=== PATIENT | female | born 1945 | race Caucasian/White ===

== ENCOUNTER 2017-09-23 08:28 | Day surgery (SDC) | payer MEDICARE, BC ==
[2017-09-21 12:14] LABS: BASOPHILS # (AUTO) 0.1 X10'3 (0-0.2); BASOPHILS % (AUTO) 0.7 % (0-1); EOSINOPHILS # (AUTO) 0.3 X10'3 (0-0.9); EOSINOPHILS % (AUTO) 4.2 % (0-6); HEMOGLOBIN 14.1 g/dl (12.0-16.0); LYMPHOCYTES # (AUTO) 1.7 X10'3 (1.1-4.8); LYMPHOCYTES % (AUTO) 23.1 % (21-51); MEAN CORPUSCULAR HEMOGLOBIN 30.9 PG (27.0-31.0); MEAN CORPUSCULAR HGB CONC 33.7 % (33.0-36.5); MEAN CORPUSCULAR VOLUME 91.6 FL (78-98); MEAN PLATELET VOLUME 9.8 FL (7.4-10.4); MONOCYTES # (AUTO) 0.5 X10'3 (0-0.9); MONOCYTES % (AUTO) 6.7 % (2-12); NEUTROPHILS # (AUTO) 4.9 X10'3 (1.8-7.7); NEUTROPHILS % (AUTO) 65.3 % (42-75); PLATELET COUNT 255 X10'3 (140-440); RED BLOOD COUNT 4.58 X10'6 (4.20-5.60); RED CELL DISTRIBUTION WIDTH 13.7 % (11.5-14.5); WHITE BLOOD COUNT 7.5 X10'3 (4.5-11.0)
[2017-09-21 12:24] LABS: PARTIAL THROMBOPLASTIN TIME 26 SECONDS (22-32); PROTHROMBIN TIME 10.1 SECONDS (9.0-12.0)
[2017-09-21 12:35] LABS: ALANINE AMINOTRANSFERASE 28 U/L (12-78); ALBUMIN 3.9 G/DL (3.4-5.0); ALBUMIN/GLOBULIN RATIO 0.9 (1.1-1.5); ALKALINE PHOSPHATASE 74 IU/L (46-116); ANION GAP 9 (8-16); ASPARTATE AMINO TRANSFERASE 21 U/L (10-37); BILIRUBIN,TOTAL 0.5 MG/DL (0.1-1.0); BLOOD UREA NITROGEN 31 MG/DL (7-18); BUN/CREATININE RATIO 22.1 (6.6-38.0); CALCIUM 9.9 MG/DL (8.5-10.1); CHLORIDE 104 MMOL/L (99-107); GLUCOSE 90 MG/DL (70-104); POTASSIUM 4.1 MMOL/L (3.5-5.1); SODIUM 140 MMOL/L (135-145); TOTAL CARBON DIOXIDE 27.5 MMOL/L (24-32); TOTAL PROTEIN 8.1 G/DL (6.4-8.2); eGFR 37 ML/MIN
[~2017-09-23] VITALS: Ht 149.9 cm; Wt 79.0 kg
[2017-09-23] VITALS (13 sets, daily range): BP systolic 125–173; BP diastolic 60–86
[~2017-09-23 08:28] MED LIST: ASPI-612 PO; LISI-234 PO; LISI-600 PO; VERA240T PO
[2017-09-23] MEDS ORDERED: nitroGLYCERIN 0.4mg SUBLingual tab SL PRN (08:55)
[2017-09-23] MEDS ORDERED: diphenhydrAMINE 25mg capsule PO PRN (08:55)
[2017-09-23] MEDS ORDERED: normal saline 1000ml 1,000 ML IV SCH ×2 (08:55→11:35)
[2017-09-23] MEDS ORDERED: LORazepam 0.5 MG tablet PO PRN (08:55)
[2017-09-23] MEDS ORDERED: NITR0.4T51 SL (09:22)
[2017-09-23] MEDS ORDERED: DOXA2TAB2 PO (09:22)
[2017-09-23] MEDS ORDERED: CYAN-19 PO (09:22)
[2017-09-23] MEDS ORDERED: TRIA1CAP6 PO (09:22)
[2017-09-23] MEDS ORDERED: fentaNYL/PF 50MCG/1 ML 2ML syringe ONE (10:02)
[2017-09-23] MEDS ORDERED: midazolam 2 mg/2 ml injection ONE (10:02)
[2017-09-23] MEDS ORDERED: iohexol 350MG/ML 100ml bottle IV ONE (10:02)
[2017-09-23] MEDS ORDERED: iohexol 350 MG/ML 50ML vial IV ONE ×2 (10:02→10:39)
[2017-09-23] MEDS ORDERED: LIDOcaine 1%/PF (10mg/ml) 5ml vial ONE (10:02)
[2017-09-23] MEDS ORDERED: ondansetron/PF 4mg/2ml inj IV PRN (11:35)
[2017-09-23] MEDS ORDERED: OXAZEpam 15mg capsule PO PRN (11:35)
[2017-09-23] MEDS ORDERED: HYDROcodone/acetaminophen 5mg/325mg tablet PO PRN (11:35)
[2017-09-23] MEDS ORDERED: proCHLORperazine 10 MG/2 ml inj IV PRN (11:35)
[2017-09-23] MEDS ORDERED: HYDROcodone/acetaminophen 10/325mg tab PO PRN (11:35)
== END 2017-09-23 18:35 | disposition home or self-care (01) ==
LOC: SSTAY O 08:28
PROVIDERS: ATTEND Internal Medicine Cardiovascular Disease
DX: I25.10 Atherosclerotic heart disease of native coronary artery without angina pectoris (principal); I11.0 Hypertensive heart disease with heart failure; I50.9 Heart failure, unspecified; E78.5 Hyperlipidemia, unspecified; M19.90 Unspecified osteoarthritis, unspecified site; I25.2 Old myocardial infarction; M51.36 Other intervertebral disc degeneration, lumbar region; D25.9 Leiomyoma of uterus, unspecified; J44.9 Chronic obstructive pulmonary disease, unspecified; Z79.82 Long term (current) use of aspirin; Z98.890 Other specified postprocedural states; Z72.89 Other problems related to lifestyle; Z79.899 Other long term (current) drug therapy
CPT/HCPCS: 36415; 71046; 75630; 80053; 85025; 85610; 85730; 93458; 99152; 99153; A6257; C1760; C1769; J1644; J2001; J2250; J3010; J7030; Q0163; Q9967

== ENCOUNTER 2017-10-22 05:22 | Inpatient (IN) | payer MEDICARE, BC ==
[2017-10-20 14:08] LABS: BASOPHILS % (AUTO) 0.7 % (0-1); EOSINOPHILS # (AUTO) 0.3 X10'3 (0-0.9); EOSINOPHILS % (AUTO) 4.3 % (0-6); LYMPHOCYTES # (AUTO) 1.3 X10'3 (1.1-4.8); LYMPHOCYTES % (AUTO) 19.4 % (21-51); MEAN CORPUSCULAR HEMOGLOBIN 31.4 PG (27.0-31.0); MEAN CORPUSCULAR HGB CONC 34.3 % (33.0-36.5); MEAN CORPUSCULAR VOLUME 91.4 FL (78-98); MEAN PLATELET VOLUME 9.9 FL (7.4-10.4); MONOCYTES # (AUTO) 0.5 X10'3 (0-0.9); MONOCYTES % (AUTO) 7.4 % (2-12); NEUTROPHILS # (AUTO) 4.5 X10'3 (1.8-7.7); NEUTROPHILS % (AUTO) 68.2 % (42-75); PRE OP HEMATOCRIT 40.2 % (35.0-45.0); PRE OP HEMOGLOBIN 13.8 g/dL (12.0-16.0); PRE OP PLATELET COUNT 195 X10'3 (140-440); RED BLOOD COUNT 4.39 X10'6 (4.20-5.60); RED CELL DISTRIBUTION WIDTH 13.8 % (11.5-14.5)
[2017-10-20 14:18] LABS: HEMOGLOBIN A1C 5.8 % (4.5-6.2)
[2017-10-20 14:21] LABS: ALBUMIN 3.7 G/DL (3.4-5.0); ALBUMIN/GLOBULIN RATIO 0.9 (1.1-1.5); ALKALINE PHOSPHATASE 77 IU/L (46-116); BLOOD UREA NITROGEN 27 MG/DL (7-18); BUN/CREATININE RATIO 21.1 (6.6-38.0); CHLORIDE 105 MMOL/L (99-107); CREATININE 1.28 MG/DL (0.40-0.90); PRE OP ALT 19 U/L (30-65); PRE OP ANION GAP 10 (8-16); PRE OP AST 18 U/L (10-37); PRE OP BILIRUB, TOTAL 0.5 MG/DL (0.0-1.0); PRE OP GLUCOSE 107 MG/DL (70-104); PRE OP POTASSIUM 4.2 MMOL/L (3.4-5.1); PRE OP SODIUM 142 MMOL/L (135-145); TOTAL CARBON DIOXIDE 27.1 MMOL/L (24-32); eGFR 41 ML/MIN
[2017-10-20 14:22] LABS: CLARITY,URINE Clear (Clear); COLOR,URINE Yellow (Yellow); GLUCOSE, URINE Negative (Neg); KETONES,URINE Negative (Neg); LEUKOCYTE ESTERASE ,URINE Moderate (Neg); NITRITES, URINE Negative (Neg); OCCULT BLOOD,URINE Negative (Neg); PROTEIN,URINE Negative (Neg); UROBILINOGEN,URINE 0.2 E.U/dL (0.2-1.0)
[2017-10-20 14:25] LABS: UA COLLECTION TYPE CLN CATCH MIDSTREAM
[2017-10-20 15:04] LABS: BACTERIA,URINE 1+ /HPF (Neg); RBC,URINE 0-2 /HPF (0-2); SQUAMOUS EPITHELIAL CELL,UR MANY /LPF (FEW); WBC,URINE 30-50 /HPF (0-4)
[2017-10-20 21:45] LABS: ABG BASE EXCESS 0.7 mmol/L (-2.0-3.0); ABG HCO3 24.9 mmol/L (22.0-26.0); ABG OXYGEN SATURATION 96.5 % (95-98); ABG PCO2 (T) 38.7 mmHg (32.0-45.0); ABG PH (T) 7.427 (7.350-7.450); ABG PO2 (T) 79.4 mmHg (83-108); ALLEN'S TEST Positive; FCOHb 1.1 % (0.5-1.5); FMetHb 0.3 % (0.3-1.12); FO2Hb 95.1 % (94-100); TOTAL HEMOGLOBIN 14.1 G/dl (12.0-16.0)
[2017-10-21 11:45] VITALS: BP 132/68
[~2017-10-22] VITALS: Ht 149.9 cm; Wt 85.5 kg
[2017-10-22] VITALS (28 sets, daily range): BP systolic 90–160; BP diastolic 51–88
[~2017-10-22 05:22] MED LIST changes: +CHOL10002 PO; +DOXA2TAB2 PO; -LISI-234 PO; +NITR0.4T51 SL; +TRIA1CAP6 PO; +ringers solution, lacted 1,000 ML IV SCH
[2017-10-22] MEDS ORDERED: LORazepam 2 mg/ml vial IV ONE (05:30)
[2017-10-22] MEDS ORDERED: dextrose 50%-water 50ml dispensing syringe IV PRN ×2 (05:30→11:15)
[2017-10-22] MEDS ORDERED: cefazolin/dext.iso 2gm/50ml 50 ML IV ONE (05:30)
[2017-10-22] MEDS ORDERED: mupirocin 2% ointment 22GM TP SCH (05:30)
[2017-10-22] MEDS ORDERED: metoprolol tartrate 12.5mg (1/2 tablet) PO ONE (05:30)
[2017-10-22] MEDS ORDERED: vancomycin inj 1,500 MG in normal saline 300ml IV soln IV ONE (05:30)
[2017-10-22] MEDS ORDERED: insulin regular, human 100 UNITS in normal saline 100ml IV soln 99 ML IV SCH ×2 (05:30)
[2017-10-22] MEDS ORDERED: famotidine 20mg tablet PO ONE (05:30)
[2017-10-22] MEDS ORDERED: LIDOcaine 1% (10mg/ml) 2ml vial ONE (05:45)
[2017-10-22] MEDS ORDERED: LORazepam 2 mg/ml vial ONE (06:51)
[2017-10-22] MEDS ORDERED: nitroGLYCERIN in D5W 50mg/250ml (Tridil) infusion IV ONE (07:00)
[2017-10-22] MEDS ORDERED: isoflurane 100ml inhalation liquid IH ONE (07:00)
[2017-10-22] MEDS ORDERED: protamine sulf. 10mg/ml inj. IV ONE (07:00)
[2017-10-22] MEDS ORDERED: aminocaproic acid 250 MG/1 ML inj. ONE ×2 (07:00→15:00)
[2017-10-22] MEDS ORDERED: DOPamine/D5W 400mg/250ml bag IV ONE (07:00)
[2017-10-22] MEDS ORDERED: SUFENTANIL CITRATE 50 MCG/ML 2ml ampule IV ONE (07:12)
[2017-10-22] MEDS ORDERED: rocuronium 10mg/ml inj IV ONE (07:13)
[2017-10-22] MEDS ORDERED: LIDOcaine 2% (20mg/ml) 5ml vial ONE (07:13)
[2017-10-22] MEDS ORDERED: propofol inj 20 ML IV ONE (07:13)
[2017-10-22 07:56] LABS: ABG BASE EXCESS VENOUS -3.1 mmol/L; ABG HCO3 VENOUS 22.6 mmol/L; ABG PCO2 VENOUS 43.1 mmHg; CL (ABG) 108 mmol/L (99-107); FCOHb VENOUS 0.3 %; FHHb VENOUS 23.1 %; FMetHb VENOUS 0.4 %; FO2Hb VENOUS 76.2 %; GLUCOSE (ABG) 105 mg/dl (70-105); IONIZED CA (ABG) 1.18 mmol/L (1.03-1.32); K (ABG) 3.5 mmol/L (3.3-5.1); NA (ABG) 137 mmol/L (135-145); TOTAL HEMOGLOBIN 11.3 G/dl (12.0-16.0)
[2017-10-22] MEDS ORDERED: papaverine 30 mg/ml 2ml inj. ONE (08:00)
[2017-10-22] MEDS ORDERED: heparin 10,000 units/1 ML INJ IR ONE (08:30)
[2017-10-22] MEDS ORDERED: papaverine 30 mg/ml 2ml inj. IA ONE (08:30)
[2017-10-22 09:15] LABS: ABG BASE EXCESS -2.1 mmol/L (-2.0-3.0); ABG HCO3 21.9 mmol/L (22.0-26.0); ABG OXYGEN SATURATION 99.6 % (95-98); ABG PCO2 33.9 mmHg (35.0-45.0); ABG PH 7.428 (7.350-7.450); ABG PO2 530.1 mmHg (60.0-100.0); CL (ABG) 106 mmol/L (99-107); FCOHb 0.6 % (0.5-1.5); FMetHb 0.1 % (0.3-1.12); FO2Hb 98.9 % (94-100); GLUCOSE (ABG) 104 mg/dl (70-105); IONIZED CA (ABG) 1.02 mmol/L (1.03-1.32); K (ABG) 4.6 mmol/L (3.3-5.1); NA (ABG) 133 mmol/L (135-145); TOTAL HEMOGLOBIN 8.2 G/dl (12.0-16.0)
[2017-10-22 09:41] LABS: ABG BASE EXCESS VENOUS -0.1 mmol/L; ABG HCO3 VENOUS 24.6 mmol/L; ABG PCO2 VENOUS 40.3 mmHg; ABG PO2 VENOUS 42.1 mmHg; CL (ABG) 103 mmol/L (99-107); FCOHb VENOUS 1.4 %; FHHb VENOUS 18.7 %; FMetHb VENOUS 0.3 %; FO2Hb VENOUS 79.6 %; GLUCOSE (ABG) 203 mg/dl (70-105); IONIZED CA (ABG) 0.98 mmol/L (1.03-1.32); K (ABG) 4.6 mmol/L (3.3-5.1); NA (ABG) 133 mmol/L (135-145); TOTAL HEMOGLOBIN 7.9 G/dl (12.0-16.0)
[2017-10-22 10:21] LABS: ABG BASE EXCESS 2.6 mmol/L (-2.0-3.0); ABG HCO3 27.5 mmol/L (22.0-26.0); ABG OXYGEN SATURATION 99.7 % (95-98); ABG PCO2 44.6 mmHg (35.0-45.0); ABG PH 7.408 (7.350-7.450); CL (ABG) 107 mmol/L (99-107); FCOHb 1.2 % (0.5-1.5); FMetHb 0.3 % (0.3-1.12); FO2Hb 98.2 % (94-100); GLUCOSE (ABG) 74 mg/dl (70-105); IONIZED CA (ABG) 1.19 mmol/L (1.03-1.32); K (ABG) 3.7 mmol/L (3.3-5.1); NA (ABG) 136 mmol/L (135-145); TOTAL HEMOGLOBIN 7.3 G/dl (12.0-16.0)
[2017-10-22 10:55] LABS: ABG BASE EXCESS VENOUS -1.6 mmol/L; ABG PCO2 VENOUS 44.4 mmHg; ABG PO2 VENOUS 33.7 mmHg; CL (ABG) 107 mmol/L (99-107); FCOHb VENOUS 0.5 %; FHHb VENOUS 35.8 %; FMetHb VENOUS 0.5 %; FO2Hb VENOUS 63.2 %; GLUCOSE (ABG) 150 mg/dl (70-105); IONIZED CA (ABG) 1.24 mmol/L (1.03-1.32); K (ABG) 3.4 mmol/L (3.3-5.1); NA (ABG) 136 mmol/L (135-145)
[2017-10-22] MEDS ORDERED: DOPamine 400mg/D5W 250ml 250 ML IV PRN (11:13)
[2017-10-22] MEDS ORDERED: niCARDipine/sod cl 20mg/200ml 200 ML IV PRN (11:13)
[2017-10-22] MEDS ORDERED: normal saline 250ml IV soln 250 ML IV PRN (11:15)
[2017-10-22] MEDS ORDERED: Neutra Phos packet PO PRN (11:15)
[2017-10-22] MEDS ORDERED: sodium phosphate inj. 30 MMOL in dextrose 5%-water 250 ML IV PRN (11:15)
[2017-10-22] MEDS ORDERED: sodium phosphate inj. 15 MMOL in dextrose 5%-water 150 ML IV PRN (11:15)
[2017-10-22] MEDS ORDERED: ipratropium/albuterol 3ml nebule IH PRN (11:15)
[2017-10-22] MEDS ORDERED: acetaminophen 325mg tablet PO PRN (11:15)
[2017-10-22] MEDS ORDERED: potassium Cl 20mEq/100mL bag 100 ML IV PRN (11:15)
[2017-10-22] MEDS ORDERED: magnesium 4gm in 100ml NS 100 ML IV PRN (11:15)
[2017-10-22] MEDS ORDERED: magnesium hydroxide 30ml (MOM) UD suspension PO PRN (11:15)
[2017-10-22] MEDS ORDERED: morphine 4 MG/ML inj SYRINge IV PRN ×2 (11:15)
[2017-10-22] MEDS ORDERED: magnesium 2GM in 50ml NS 50 ML IV PRN (11:15)
[2017-10-22] MEDS ORDERED: metoclopramide 5 mg/ml inj IV PRN (11:15)
[2017-10-22] MEDS ORDERED: HYDROcodone/acetaminophen 10/325mg tab PO PRN (11:15)
[2017-10-22] MEDS: insulin regular, human inj. 100 UNITS in normal saline 100ml IV soln 100 ML IV SCH ×8 (11:34→23:12)
[2017-10-22 12:11] LABS: ABG BASE EXCESS -2.2 mmol/L (-2.0-3.0); ABG OXYGEN SATURATION 98.8 % (95-98); ABG PH (T) 7.374 (7.350-7.450); ABG PO2 (T) 198.9 mmHg (83-108); ALLEN'S TEST Positive; FCOHb 0.3 % (0.5-1.5); FMetHb 0.1 % (0.3-1.12); FO2Hb 98.4 % (94-100); MINUTE VOLUME 6 L/min; PATIENT TEMPERATURE 36.4; PEEP 5 cm H2O; RESPIRATORY RATE 12 b/min; RESPIRATORY RATE (OBSERVED) 12 b/min; TIDAL VOLUME 500 mL; TOTAL HEMOGLOBIN 10.7 G/dl (12.0-16.0)
[2017-10-22 12:16] LABS: BASOPHILS % (AUTO) 0 % (0-1); EOSINOPHILS # (AUTO) 0.2 X10'3 (0-0.9); EOSINOPHILS % (AUTO) 2.4 % (0-6); HEMATOCRIT 29.4 % (35.0-45.0); HEMOGLOBIN 9.9 g/dl (12.0-16.0); LYMPHOCYTES # (AUTO) 0.7 X10'3 (1.1-4.8); LYMPHOCYTES % (AUTO) 6.9 % (21-51); MEAN CORPUSCULAR HEMOGLOBIN 31.1 PG (27.0-31.0); MEAN CORPUSCULAR HGB CONC 33.6 % (33.0-36.5); MEAN CORPUSCULAR VOLUME 92.5 FL (78-98); MEAN PLATELET VOLUME 9.9 FL (7.4-10.4); MONOCYTES # (AUTO) 0.4 X10'3 (0-0.9); MONOCYTES % (AUTO) 4.4 % (2-12); NEUTROPHILS # (AUTO) 8.6 X10'3 (1.8-7.7); NEUTROPHILS % (AUTO) 86.3 % (42-75); PLATELET COUNT 105 X10'3 (140-440); RED BLOOD COUNT 3.18 X10'6 (4.20-5.60); RED CELL DISTRIBUTION WIDTH 13.7 % (11.5-14.5); WHITE BLOOD COUNT 9.9 X10'3 (4.5-11.0)
[2017-10-22 12:23] LABS: INR 1.1 INR; PARTIAL THROMBOPLASTIN TIME 29 SECONDS (22-32); PROTHROMBIN TIME 11.5 SECONDS (9.0-12.0)
[2017-10-22 12:33] LABS: ALANINE AMINOTRANSFERASE 20 U/L (12-78); ALBUMIN 2.8 G/DL (3.4-5.0); ALBUMIN/GLOBULIN RATIO 1.3 (1.1-1.5); ALKALINE PHOSPHATASE 36 IU/L (46-116); ANION GAP 9 (8-16); ASPARTATE AMINO TRANSFERASE 24 U/L (10-37); BILIRUBIN,TOTAL 0.6 MG/DL (0.1-1.0); BLOOD UREA NITROGEN 26 MG/DL (7-18); BUN/CREATININE RATIO 20.8 (6.6-38.0); CALCIUM 8.3 MG/DL (8.5-10.1); CHLORIDE 110 MMOL/L (99-107); CREATININE 1.25 MG/DL (0.40-0.90); GLUCOSE 73 MG/DL (70-104); MAGNESIUM 3.7 MG/DL (1.5-2.4); POTASSIUM 3.5 MMOL/L (3.5-5.1); SODIUM 146 MMOL/L (135-145); TOTAL CARBON DIOXIDE 26.6 MMOL/L (24-32); TOTAL PROTEIN 4.9 G/DL (6.4-8.2); eGFR 42 ML/MIN
[2017-10-22] MEDS: insulin Lispro (HumaLOG) vial - multi-dose SQ SCH ×2 (13:00→17:47)
[2017-10-22] MEDS: sodium chloride 0.45% 1,000 ML IV SCH (13:14)
[2017-10-22] MEDS: albumin (Human) 5% 250ml 250 ML IV PRN ×2 (13:16→13:59)
[2017-10-22] MEDS: nitroGLYCERIN-Tridil 50MG/D5W 250 ML IV PRN (13:49)
[2017-10-22] MEDS ORDERED: heparin 10,000 units/1 ML INJ ONE (15:00)
[2017-10-22] MEDS ORDERED: potassium Cl 2 mEq/ml inj IV ONE (15:00)
[2017-10-22] MEDS ORDERED: MAGNESIUM SULFATE 4 MEQ/ML (1gm/2ml) injection ONE (15:00)
[2017-10-22] MEDS ORDERED: phenylephrine 10mg/ml inj IV ONE (15:00)
[2017-10-22] MEDS ORDERED: albumin (human) 25% 100 ML IV solution IV ONE (15:00)
[2017-10-22] MEDS ORDERED: sodium bicarbonate (8.4%) 1 mEq/ml syringe ONE (15:00)
[2017-10-22] MEDS ORDERED: heparin 1,000 units/ml 10ml inj ONE (15:00)
[2017-10-22] MEDS ORDERED: calcium chloride 100 MG/1 ML inj IV ONE (15:00)
[2017-10-22] MEDS ORDERED: LIDOcaine 2% (20 mg/ml) 5ml cardiac syringe ONE (15:00)
[2017-10-22] MEDS: cefazolin 1gm/NS 100mL 100 ML IV SCH (15:59)
[2017-10-22] MEDS: potassium Cl 20mEq/100mL bag 100 ML IV PRN ×5 (16:00→22:56)
[2017-10-22 18:08] LABS: BASOPHILS % (AUTO) 0 % (0-1); EOSINOPHILS # (AUTO) 0.2 X10'3 (0-0.9); EOSINOPHILS % (AUTO) 1.3 % (0-6); HEMOGLOBIN 7.5 g/dl (12.0-16.0); LYMPHOCYTES # (AUTO) 0.4 X10'3 (1.1-4.8); LYMPHOCYTES % (AUTO) 3.3 % (21-51); MEAN CORPUSCULAR HEMOGLOBIN 31.2 PG (27.0-31.0); MEAN CORPUSCULAR HGB CONC 34.2 % (33.0-36.5); MEAN CORPUSCULAR VOLUME 91.2 FL (78-98); MEAN PLATELET VOLUME 8.8 FL (7.4-10.4); MONOCYTES # (AUTO) 0.3 X10'3 (0-0.9); MONOCYTES % (AUTO) 2.5 % (2-12); NEUTROPHILS # (AUTO) 11.9 X10'3 (1.8-7.7); NEUTROPHILS % (AUTO) 92.9 % (42-75); PLATELET COUNT 186 X10'3 (140-440); RED BLOOD COUNT 2.41 X10'6 (4.20-5.60); RED CELL DISTRIBUTION WIDTH 13.6 % (11.5-14.5); WHITE BLOOD COUNT 12.8 X10'3 (4.5-11.0)
[2017-10-22 18:28] LABS: ALBUMIN 3.4 G/DL (3.4-5.0); ANION GAP 12 (8-16); BLOOD UREA NITROGEN 25 MG/DL (7-18); BUN/CREATININE RATIO 18.4 (6.6-38.0); CALCIUM 8.1 MG/DL (8.5-10.1); CHLORIDE 110 MMOL/L (99-107); CREATININE 1.36 MG/DL (0.40-0.90); GLUCOSE 140 MG/DL (70-104); SODIUM 146 MMOL/L (135-145); TOTAL CARBON DIOXIDE 23.6 MMOL/L (24-32); eGFR 38 ML/MIN
[2017-10-22] MEDS: docusate sod 100mg capsule PO SCH (20:00)
[2017-10-22] MEDS: mupirocin 2% ointment 22GM NS SCH (20:13)
[2017-10-22] MEDS: vancomycin/NS 1 GM ADD-VANTAGE 250 ML IV SCH (20:27)
[2017-10-22 23:11] LABS: HEMOGLOBIN 8.3 g/dl (12.0-16.0); MEAN CORPUSCULAR HEMOGLOBIN 31.5 PG (27.0-31.0); MEAN CORPUSCULAR HGB CONC 34.6 % (33.0-36.5); MEAN CORPUSCULAR VOLUME 91.2 FL (78-98); MEAN PLATELET VOLUME 9.4 FL (7.4-10.4); PLATELET COUNT 155 X10'3 (140-440); RED BLOOD COUNT 2.64 X10'6 (4.20-5.60); RED CELL DISTRIBUTION WIDTH 13.8 % (11.5-14.5); WHITE BLOOD COUNT 12.7 X10'3 (4.5-11.0)
[2017-10-22 23:21] LABS: ABG BASE EXCESS -3.1 mmol/L (-2.0-3.0); ABG HCO3 21.8 mmol/L (22.0-26.0); ABG OXYGEN SATURATION 96.4 % (95-98); ABG PCO2 (T) 36.4 mmHg (32.0-45.0); ABG PH (T) 7.391 (7.350-7.450); ABG PO2 (T) 91.4 mmHg (83-108); FCOHb 0.3 % (0.5-1.5); FMetHb 0.1 % (0.3-1.12); PEEP 5 cm H2O; RESPIRATORY RATE (OBSERVED) 18 b/min
[2017-10-23] VITALS (22 sets, daily range): BP systolic 110–163; BP diastolic 69–85
[2017-10-23] MEDS: cefazolin 1gm/NS 100mL 100 ML IV SCH ×3 (00:09→16:00)
[2017-10-23] MEDS: potassium Cl 20mEq/100mL bag 100 ML IV PRN (00:16)
[2017-10-23] MEDS: insulin regular, human inj. 100 UNITS in normal saline 100ml IV soln 100 ML IV SCH ×6 (00:57→03:02)
[2017-10-23 02:21] LABS: BASOPHILS % (AUTO) 0 % (0-1); EOSINOPHILS # (AUTO) 0.2 X10'3 (0-0.9); EOSINOPHILS % (AUTO) 1.7 % (0-6); HEMATOCRIT 24.2 % (35.0-45.0); HEMOGLOBIN 8.4 g/dl (12.0-16.0); LYMPHOCYTES # (AUTO) 0.5 X10'3 (1.1-4.8); LYMPHOCYTES % (AUTO) 3.9 % (21-51); MEAN CORPUSCULAR HEMOGLOBIN 31.7 PG (27.0-31.0); MEAN CORPUSCULAR HGB CONC 34.5 % (33.0-36.5); MEAN CORPUSCULAR VOLUME 91.9 FL (78-98); MEAN PLATELET VOLUME 9.5 FL (7.4-10.4); MONOCYTES # (AUTO) 0.6 X10'3 (0-0.9); MONOCYTES % (AUTO) 4.6 % (2-12); NEUTROPHILS # (AUTO) 11.7 X10'3 (1.8-7.7); NEUTROPHILS % (AUTO) 89.8 % (42-75); PLATELET COUNT 154 X10'3 (140-440); RED BLOOD COUNT 2.63 X10'6 (4.20-5.60); RED CELL DISTRIBUTION WIDTH 13.6 % (11.5-14.5)
[2017-10-23 02:29] LABS: PARTIAL THROMBOPLASTIN TIME 25 SECONDS (22-32); PROTHROMBIN TIME 10.8 SECONDS (9.0-12.0)
[2017-10-23 02:33] LABS: ALANINE AMINOTRANSFERASE 24 U/L (12-78); ALBUMIN 3.1 G/DL (3.4-5.0); ALBUMIN/GLOBULIN RATIO 1.2 (1.1-1.5); ALKALINE PHOSPHATASE 35 IU/L (46-116); ANION GAP 13 (8-16); ASPARTATE AMINO TRANSFERASE 80 U/L (10-37); BILIRUBIN,TOTAL 0.6 MG/DL (0.1-1.0); BLOOD UREA NITROGEN 28 MG/DL (7-18); BUN/CREATININE RATIO 20.3 (6.6-38.0); CALCIUM 7.9 MG/DL (8.5-10.1); CHLORIDE 114 MMOL/L (99-107); CREATININE 1.38 MG/DL (0.40-0.90); GLUCOSE 129 MG/DL (70-104); MAGNESIUM 2.6 MG/DL (1.5-2.4); POTASSIUM 5.1 MMOL/L (3.5-5.1); SODIUM 148 MMOL/L (135-145); TOTAL CARBON DIOXIDE 21.4 MMOL/L (24-32); TOTAL PROTEIN 5.6 G/DL (6.4-8.2); eGFR 37 ML/MIN
[2017-10-23 05:46] LABS: ACT @ 1.70 U 289 SEC (193-297); ACT @ 2.84 U 386 SEC (260-420); BASELINE ACT 129 SEC (101-148); PATIENT WEIGHT 82.0k KG
[2017-10-23 05:46] LABS: ACTIVATED CLOTTING TIME 135 SEC (101-148)
[2017-10-23] MEDS: pantoprazole 40mg Tablet.DR PO SCH (07:30)
[2017-10-23] MEDS: insulin Lispro (HumaLOG) vial - multi-dose SQ SCH (09:00)
[2017-10-23] MEDS: aspirin 325mg tablet, delayed-release (Ecotrin) PO SCH (09:15)
[2017-10-23] MEDS: metoprolol tartrate 12.5mg (1/2 tablet) PO SCH ×2 (09:15→20:18)
[2017-10-23] MEDS: atorvastatin 10mg tablet PO SCH (09:15)
[2017-10-23] MEDS: vancomycin/NS 1 GM ADD-VANTAGE 250 ML IV SCH ×2 (09:15→20:17)
[2017-10-23] MEDS: docusate sod 100mg capsule PO SCH ×2 (09:16→20:18)
[2017-10-23] MEDS: vitamin D (cholecalciferol) 1,000 unit tablet PO SCH (09:16)
[2017-10-23] MEDS: mupirocin 2% ointment 22GM NS SCH ×2 (09:23→20:17)
[2017-10-23] MEDS ORDERED: lisinopril 10 MG tablet PO ONE (12:30)
[2017-10-23] MEDS: nitroGLYCERIN-Tridil 50MG/D5W 250 ML IV PRN (17:57)
[2017-10-23] MEDS ORDERED: lactobacillus rhamnosus 10,000 MMU CELLS/CAPSULE PO SCH (20:00)
[2017-10-23] MEDS: HYDROcodone/acetaminophen 10/325mg tab PO PRN (20:18)
[2017-10-24] VITALS (31 sets, daily range): BP systolic 92–167; BP diastolic 56–108
[2017-10-24] MEDS: HYDROcodone/acetaminophen 10/325mg tab PO PRN ×2 (00:37→15:26)
[2017-10-24] MEDS: cefazolin 1gm/NS 100mL 100 ML IV SCH (00:45)
[2017-10-24 03:49] LABS: ANION GAP 9 (8-16); BLOOD UREA NITROGEN 49 MG/DL (7-18); BUN/CREATININE RATIO 25.3 (6.6-38.0); CALCIUM 8.3 MG/DL (8.5-10.1); CHLORIDE 110 MMOL/L (99-107); CREATININE 1.94 MG/DL (0.40-0.90); GLUCOSE 138 MG/DL (70-104); MAGNESIUM 2.5 MG/DL (1.5-2.4); PHOSPHORUS 4.2 MG/DL (2.3-4.5); POTASSIUM 4.9 MMOL/L (3.5-5.1); SODIUM 143 MMOL/L (135-145); TOTAL CARBON DIOXIDE 24.3 MMOL/L (24-32); eGFR 25 ML/MIN
[2017-10-24 04:00] LABS: BASOPHILS % (AUTO) 0 % (0-1); EOSINOPHILS # (AUTO) 0.2 X10'3 (0-0.9); EOSINOPHILS % (AUTO) 1.2 % (0-6); HEMATOCRIT 26.4 % (35.0-45.0); HEMOGLOBIN 9.1 g/dl (12.0-16.0); LYMPHOCYTES # (AUTO) 1.1 X10'3 (1.1-4.8); LYMPHOCYTES % (AUTO) 5.9 % (21-51); MEAN CORPUSCULAR HEMOGLOBIN 31.7 PG (27.0-31.0); MEAN CORPUSCULAR HGB CONC 34.6 % (33.0-36.5); MEAN CORPUSCULAR VOLUME 91.7 FL (78-98); MEAN PLATELET VOLUME 10.6 FL (7.4-10.4); MONOCYTES # (AUTO) 1.4 X10'3 (0-0.9); MONOCYTES % (AUTO) 8.1 % (2-12); NEUTROPHILS # (AUTO) 15.2 X10'3 (1.8-7.7); NEUTROPHILS % (AUTO) 84.8 % (42-75); PLATELET COUNT 164 X10'3 (140-440); RED BLOOD COUNT 2.88 X10'6 (4.20-5.60); RED CELL DISTRIBUTION WIDTH 13.8 % (11.5-14.5)
[2017-10-24] MEDS: nitroGLYCERIN-Tridil 50MG/D5W 250 ML IV PRN ×12 (07:01→18:01)
[2017-10-24] MEDS: metoprolol tartrate 12.5mg (1/2 tablet) PO SCH (07:34)
[2017-10-24] MEDS: aspirin 325mg tablet, delayed-release (Ecotrin) PO SCH (07:35)
[2017-10-24] MEDS: vitamin D (cholecalciferol) 1,000 unit tablet PO SCH (07:35)
[2017-10-24] MEDS: pantoprazole 40mg Tablet.DR PO SCH (07:36)
[2017-10-24] MEDS: atorvastatin 10mg tablet PO SCH (07:36)
[2017-10-24] MEDS: docusate sod 100mg capsule PO SCH ×2 (07:36→19:39)
[2017-10-24] MEDS: mupirocin 2% ointment 22GM NS SCH (07:38)
[2017-10-24] MEDS ORDERED: furosemide 40mg/4ml inj IV ONE (07:50)
[2017-10-24] MEDS ORDERED: metoprolol tartrate 25mg tablet PO SCH ×2 (08:00→20:00)
[2017-10-24] MEDS: aspirin 81mg tablet.DR PO SCH (08:00)
[2017-10-24] MEDS ORDERED: metoprolol tartrate 12.5mg (1/2 tablet) PO ONE (08:35)
[2017-10-24] MEDS ORDERED: amiodarone 150mg/dext, iso-os 100 ML IV ONE (10:55)
[2017-10-24] MEDS: sodium chloride 0.45% 1,000 ML IV SCH (11:31)
[2017-10-24] MEDS: amiodarone/D5 450MG/250ML BAG 250 ML IV SCH ×2 (11:41→17:51)
[2017-10-24] MEDS: lisinopril 20mg tablet PO SCH (20:55)
[2017-10-24] MEDS ORDERED: lisinopril 10 MG tablet PO SCH (21:00)
[2017-10-24] MEDS ORDERED: doxazosin mesylate 2mg tablet PO SCH (21:00)
[2017-10-25] VITALS (24 sets, daily range): BP systolic 112–212; BP diastolic 73–108
[2017-10-25] MEDS: ondansetron/PF 4mg/2ml inj IV PRN ×3 (00:43→22:13)
[2017-10-25 04:24] LABS: BASOPHILS % (AUTO) 0.2 % (0-1); EOSINOPHILS % (AUTO) 0 % (0-6); HEMATOCRIT 29.8 % (35.0-45.0); HEMOGLOBIN 10.1 g/dl (12.0-16.0); LYMPHOCYTES # (AUTO) 1.4 X10'3 (1.1-4.8); LYMPHOCYTES % (AUTO) 7.2 % (21-51); MEAN CORPUSCULAR HEMOGLOBIN 31.7 PG (27.0-31.0); MEAN CORPUSCULAR HGB CONC 33.9 % (33.0-36.5); MEAN CORPUSCULAR VOLUME 93.3 FL (78-98); MEAN PLATELET VOLUME 10.4 FL (7.4-10.4); MONOCYTES # (AUTO) 1.6 X10'3 (0-0.9); MONOCYTES % (AUTO) 8.1 % (2-12); NEUTROPHILS # (AUTO) 16.5 X10'3 (1.8-7.7); NEUTROPHILS % (AUTO) 84.5 % (42-75); PLATELET COUNT 183 X10'3 (140-440); RED BLOOD COUNT 3.19 X10'6 (4.20-5.60); RED CELL DISTRIBUTION WIDTH 13.7 % (11.5-14.5); WHITE BLOOD COUNT 19.5 X10'3 (4.5-11.0)
[2017-10-25 04:40] LABS: ALBUMIN 3.2 G/DL (3.4-5.0); ANION GAP 10 (8-16); BLOOD UREA NITROGEN 54 MG/DL (7-18); CALCIUM 8.3 MG/DL (8.5-10.1); CHLORIDE 108 MMOL/L (99-107); GLUCOSE 131 MG/DL (70-104); MAGNESIUM 2.5 MG/DL (1.5-2.4); PHOSPHORUS 3.8 MG/DL (2.3-4.5); POTASSIUM 4.5 MMOL/L (3.5-5.1); SODIUM 142 MMOL/L (135-145); TOTAL CARBON DIOXIDE 24.4 MMOL/L (24-32); eGFR 34 ML/MIN
[2017-10-25] MEDS ORDERED: potassium Cl 40MEQ/NS 500ml 500 ML IV PRN ×2 (09:05)
[2017-10-25] MEDS ORDERED: potassium Cl 20 mEq SR tablet PO PRN ×2 (09:05)
[2017-10-25] MEDS: atorvastatin 10mg tablet PO SCH (09:09)
[2017-10-25] MEDS: pantoprazole 40mg Tablet.DR PO SCH (09:09)
[2017-10-25] MEDS: docusate sod 100mg capsule PO SCH ×2 (09:09→19:50)
[2017-10-25] MEDS: aspirin 81mg tablet.DR PO SCH (09:09)
[2017-10-25] MEDS: metoprolol tartrate 25mg tablet PO SCH ×2 (09:09→19:50)
[2017-10-25] MEDS: vitamin D (cholecalciferol) 1,000 unit tablet PO SCH (09:09)
[2017-10-25] MEDS ORDERED: insulin Lispro (HumaLOG) vial - multi-dose SQ SCH (09:10)
[2017-10-25] MEDS ORDERED: dextrose ORAL solution 15 GM/59 ML bottle PO PRN ×2 (09:10)
[2017-10-25] MEDS ORDERED: glucagon, human recombinant 1mg kit SUBCUT PRN (09:10)
[2017-10-25] MEDS ORDERED: MESSAGE TO PHARMACY PO ONE (09:10)
[2017-10-25] MEDS ORDERED: dextrose 50%-water 50ml dispensing syringe IV PRN ×2 (09:10)
[2017-10-25] MEDS ORDERED: amiodarone 200mg tablet PO SCH ×2 (09:25→20:00)
[2017-10-25] MEDS: benzonatate 100mg capsule PO PRN ×2 (10:45→19:56)
[2017-10-25] MEDS: Protein Shake (high protein) 240ml (8oz) cup PO SCH ×2 (13:00→19:50)
[2017-10-25] MEDS ORDERED: amiodarone 150mg/dext, iso-os 100 ML IV ONE (16:45)
[2017-10-25] MEDS: amiodarone/D5 450MG/250ML BAG 250 ML IV SCH ×2 (17:09→23:26)
[2017-10-25] MEDS: lisinopril 20mg tablet PO SCH (19:51)
[2017-10-25] MEDS: potassium Cl 20 mEq SR tablet PO SCH (20:00)
[2017-10-25] MEDS: insulin glargine (Lantus) pen - multi-dose SQ SCH (21:00)
[2017-10-26] VITALS (28 sets, daily range): BP systolic 104–187; BP diastolic 65–96
[2017-10-26 05:20] LABS: BASOPHILS % (AUTO) 0.2 % (0-1); EOSINOPHILS # (AUTO) 0.2 X10'3 (0-0.9); EOSINOPHILS % (AUTO) 1.5 % (0-6); HEMATOCRIT 30.3 % (35.0-45.0); HEMOGLOBIN 10.3 g/dl (12.0-16.0); LYMPHOCYTES # (AUTO) 1.7 X10'3 (1.1-4.8); LYMPHOCYTES % (AUTO) 11.1 % (21-51); MEAN CORPUSCULAR HEMOGLOBIN 31.5 PG (27.0-31.0); MEAN CORPUSCULAR HGB CONC 33.9 % (33.0-36.5); MEAN CORPUSCULAR VOLUME 92.8 FL (78-98); MEAN PLATELET VOLUME 10.5 FL (7.4-10.4); MONOCYTES # (AUTO) 1.4 X10'3 (0-0.9); MONOCYTES % (AUTO) 9.1 % (2-12); NEUTROPHILS # (AUTO) 11.8 X10'3 (1.8-7.7); NEUTROPHILS % (AUTO) 78.1 % (42-75); PLATELET COUNT 191 X10'3 (140-440); RED BLOOD COUNT 3.26 X10'6 (4.20-5.60); RED CELL DISTRIBUTION WIDTH 14.4 % (11.5-14.5); WHITE BLOOD COUNT 15.2 X10'3 (4.5-11.0)
[2017-10-26 05:46] LABS: ANION GAP 8 (8-16); BLOOD UREA NITROGEN 37 MG/DL (7-18); BUN/CREATININE RATIO 32.7 (6.6-38.0); CALCIUM 8.4 MG/DL (8.5-10.1); CHLORIDE 108 MMOL/L (99-107); CREATININE 1.13 MG/DL (0.40-0.90); GLUCOSE 125 MG/DL (70-104); MAGNESIUM 2.2 MG/DL (1.5-2.4); PHOSPHORUS 2.8 MG/DL (2.3-4.5); POTASSIUM 4.6 MMOL/L (3.5-5.1); SODIUM 143 MMOL/L (135-145); TOTAL CARBON DIOXIDE 26.9 MMOL/L (24-32); eGFR 47 ML/MIN
[2017-10-26] MEDS: pantoprazole 40mg Tablet.DR PO SCH (07:00)
[2017-10-26] MEDS: metoprolol tartrate 25mg tablet PO SCH (07:00)
[2017-10-26] MEDS ORDERED: mag hydrox/Alum hydrox/simeth 30ml oral suspension PO ONE (07:05)
[2017-10-26 07:25] LABS: BANDS% (MANUAL) 1 % (0-10); GIANT PLATELET FEW; LARGE PLATELETS FEW; LYMPHOCYTES % (MANUAL) 13 % (21-51); MONOCYTES % (MANUAL) 11 % (2-12); NEUTROPHILS % (MANUAL) 75 % (42-75); NUCLEATED RED BLOOD CELLS 1 /100WBC (0-0); PLATELET ESTIMATE NORMAL; TOTAL CELLS COUNTED 100
[2017-10-26] MEDS ORDERED: metoprolol tartrate 25mg tablet PO ONE (07:25)
[2017-10-26] MEDS: metoprolol tartrate 50mg tablet PO SCH ×2 (07:25→20:39)
[2017-10-26 07:26] LABS: POLYCHROMASIA 1+
[2017-10-26] MEDS: potassium Cl 20 mEq SR tablet PO SCH ×2 (08:00→20:39)
[2017-10-26] MEDS: K and/or MAG REPLACEMENT MC SCH (08:00)
[2017-10-26] MEDS: docusate sod 100mg capsule PO SCH ×2 (08:23→20:39)
[2017-10-26] MEDS: vitamin D (cholecalciferol) 1,000 unit tablet PO SCH (08:23)
[2017-10-26] MEDS: Protein Shake (high protein) 240ml (8oz) cup PO SCH ×3 (08:23→18:56)
[2017-10-26] MEDS: aspirin 81mg tablet.DR PO SCH (08:23)
[2017-10-26] MEDS: atorvastatin 10mg tablet PO SCH (08:23)
[2017-10-26] MEDS: triamterene/HCTZ 37.5/25mg tablet PO SCH (10:53)
[2017-10-26] MEDS: amiodarone/D5 450MG/250ML BAG 250 ML IV SCH (14:43)
[2017-10-26] MEDS ORDERED: doxazosin mesylate 2mg tablet PO ONE ×2 (14:55→16:10)
[2017-10-26] MEDS: sodium chloride 0.45% 1,000 ML IV SCH (18:46)
[2017-10-26] MEDS: insulin glargine (Lantus) pen - multi-dose SQ SCH (20:52)
[2017-10-26] MEDS ORDERED: doxazosin mesylate 2mg tablet PO SCH ×2 (21:00)
[2017-10-26] MEDS: lisinopril 20mg tablet PO SCH (22:25)
[2017-10-27] VITALS (25 sets, daily range): BP systolic 95–163; BP diastolic 58–89
[2017-10-27] MEDS: amiodarone/D5 450MG/250ML BAG 250 ML IV SCH (06:01)
[2017-10-27 06:02] LABS: BASOPHILS % (AUTO) 0.2 % (0-1); EOSINOPHILS # (AUTO) 0.3 X10'3 (0-0.9); HEMATOCRIT 31.9 % (35.0-45.0); HEMOGLOBIN 10.6 g/dl (12.0-16.0); LYMPHOCYTES # (AUTO) 1.5 X10'3 (1.1-4.8); LYMPHOCYTES % (AUTO) 10.3 % (21-51); MEAN CORPUSCULAR HEMOGLOBIN 31.3 PG (27.0-31.0); MEAN CORPUSCULAR HGB CONC 33.3 % (33.0-36.5); MEAN CORPUSCULAR VOLUME 94.1 FL (78-98); MEAN PLATELET VOLUME 10.4 FL (7.4-10.4); MONOCYTES # (AUTO) 1.2 X10'3 (0-0.9); MONOCYTES % (AUTO) 8.2 % (2-12); NEUTROPHILS # (AUTO) 11.6 X10'3 (1.8-7.7); NEUTROPHILS % (AUTO) 79.3 % (42-75); PLATELET COUNT 218 X10'3 (140-440); WHITE BLOOD COUNT 14.7 X10'3 (4.5-11.0)
[2017-10-27 06:24] LABS: ALANINE AMINOTRANSFERASE 29 U/L (12-78); ALBUMIN 3.1 G/DL (3.4-5.0); ALBUMIN/GLOBULIN RATIO 0.9 (1.1-1.5); ALKALINE PHOSPHATASE 50 IU/L (46-116); ANION GAP 8 (8-16); ASPARTATE AMINO TRANSFERASE 26 U/L (10-37); BILIRUBIN,TOTAL 0.6 MG/DL (0.1-1.0); BLOOD UREA NITROGEN 36 MG/DL (7-18); BUN/CREATININE RATIO 32.7 (6.6-38.0); CALCIUM 8.7 MG/DL (8.5-10.1); CHLORIDE 106 MMOL/L (99-107); GLUCOSE 137 MG/DL (70-104); MAGNESIUM 2.3 MG/DL (1.5-2.4); POTASSIUM 4.7 MMOL/L (3.5-5.1); SODIUM 141 MMOL/L (135-145); TOTAL CARBON DIOXIDE 26.9 MMOL/L (24-32); TOTAL PROTEIN 6.4 G/DL (6.4-8.2); eGFR 49 ML/MIN
[2017-10-27] MEDS: K and/or MAG REPLACEMENT MC SCH (08:00)
[2017-10-27] MEDS: docusate sod 100mg capsule PO SCH ×2 (08:10→19:58)
[2017-10-27] MEDS: pantoprazole 40mg Tablet.DR PO SCH (08:10)
[2017-10-27] MEDS: potassium Cl 20 mEq SR tablet PO SCH ×2 (08:11→19:57)
[2017-10-27] MEDS: aspirin 81mg tablet.DR PO SCH (08:11)
[2017-10-27] MEDS: atorvastatin 10mg tablet PO SCH (08:11)
[2017-10-27] MEDS: metoprolol tartrate 50mg tablet PO SCH ×2 (08:12→19:57)
[2017-10-27] MEDS: triamterene/HCTZ 37.5/25mg tablet PO SCH (08:12)
[2017-10-27] MEDS: Protein Shake (high protein) 240ml (8oz) cup PO SCH ×3 (08:12→18:53)
[2017-10-27] MEDS: vitamin D (cholecalciferol) 1,000 unit tablet PO SCH (08:13)
[2017-10-27] MEDS ORDERED: amiodarone 200mg tablet PO SCH (08:30)
[2017-10-27] MEDS ORDERED: amiodarone 200mg tablet PO ONE (11:55)
[2017-10-27] MEDS: amiodarone 200mg tablet PO SCH (19:57)
[2017-10-27] MEDS: insulin glargine (Lantus) pen - multi-dose SQ SCH (20:55)
[2017-10-27] MEDS: doxazosin mesylate 2mg tablet PO SCH (20:55)
[2017-10-27] MEDS: lisinopril 20mg tablet PO SCH (20:55)
[2017-10-28] VITALS (16 sets, daily range): BP systolic 112–161; BP diastolic 62–94
[2017-10-28 05:38] LABS: MAGNESIUM 2.1 MG/DL (1.5-2.4); PHOSPHORUS 3.4 MG/DL (2.3-4.5)
[2017-10-28] MEDS: K and/or MAG REPLACEMENT MC SCH (06:36)
[2017-10-28] MEDS: potassium Cl 20 mEq SR tablet PO SCH ×2 (06:37→19:47)
[2017-10-28] MEDS: pantoprazole 40mg Tablet.DR PO SCH (07:11)
[2017-10-28] MEDS: metoprolol tartrate 50mg tablet PO SCH ×2 (07:11→19:51)
[2017-10-28] MEDS: atorvastatin 10mg tablet PO SCH (07:12)
[2017-10-28] MEDS: vitamin D (cholecalciferol) 1,000 unit tablet PO SCH (07:12)
[2017-10-28] MEDS: triamterene/HCTZ 37.5/25mg tablet PO SCH (07:12)
[2017-10-28] MEDS: amiodarone 200mg tablet PO SCH ×3 (07:12→19:51)
[2017-10-28] MEDS: aspirin 81mg tablet.DR PO SCH (07:12)
[2017-10-28] MEDS: docusate sod 100mg capsule PO SCH ×2 (07:13→19:51)
[2017-10-28] MEDS: sodium chloride 0.45% 1,000 ML IV SCH (07:16)
[2017-10-28] MEDS: Protein Shake (high protein) 240ml (8oz) cup PO SCH ×3 (08:06→18:00)
[2017-10-28] MEDS ORDERED: potassium Cl 20 mEq SR tablet PO PRN ×2 (09:10)
[2017-10-28] MEDS ORDERED: potassium Cl 40MEQ/NS 500ml 500 ML IV PRN ×2 (09:10)
[2017-10-28] MEDS ORDERED: magnesium 2GM in 50ml NS 50 ML IV PRN (09:10)
[2017-10-28] MEDS ORDERED: magnesium 4gm in 100ml NS 100 ML IV PRN (09:10)
[2017-10-28] MEDS ORDERED: magnesium Cl slow-release 64mg tablet PO PRN (09:10)
[2017-10-28] MEDS: magnesium Cl slow-release 64mg tablet PO SCH (19:48)
[2017-10-28] MEDS: doxazosin mesylate 2mg tablet PO SCH (19:52)
[2017-10-28] MEDS: lisinopril 20mg tablet PO SCH (19:54)
[2017-10-28] MEDS: insulin glargine (Lantus) pen - multi-dose SQ SCH (21:00)
[2017-10-29 03:42] VITALS: BP 148/94
[2017-10-29 05:07] LABS: BASOPHILS # (AUTO) 0.1 X10'3 (0-0.2); BASOPHILS % (AUTO) 0.3 % (0-1); EOSINOPHILS # (AUTO) 0.1 X10'3 (0-0.9); EOSINOPHILS % (AUTO) 0.3 % (0-6); HEMATOCRIT 31.3 % (35.0-45.0); HEMOGLOBIN 10.5 g/dl (12.0-16.0); LYMPHOCYTES # (AUTO) 1.5 X10'3 (1.1-4.8); MEAN CORPUSCULAR HEMOGLOBIN 31.7 PG (27.0-31.0); MEAN CORPUSCULAR HGB CONC 33.6 % (33.0-36.5); MEAN CORPUSCULAR VOLUME 94.5 FL (78-98); MEAN PLATELET VOLUME 10.1 FL (7.4-10.4); MONOCYTES # (AUTO) 0.9 X10'3 (0-0.9); MONOCYTES % (AUTO) 5.2 % (2-12); NEUTROPHILS # (AUTO) 14.2 X10'3 (1.8-7.7); NEUTROPHILS % (AUTO) 85.2 % (42-75); PLATELET COUNT 229 X10'3 (140-440); RED BLOOD COUNT 3.31 X10'6 (4.20-5.60); RED CELL DISTRIBUTION WIDTH 14.4 % (11.5-14.5); WHITE BLOOD COUNT 16.7 X10'3 (4.5-11.0)
[2017-10-29 05:47] LABS: ALBUMIN 2.8 G/DL (3.4-5.0); ANION GAP 9 (8-16); BLOOD UREA NITROGEN 36 MG/DL (7-18); BUN/CREATININE RATIO 31.6 (6.6-38.0); CALCIUM 9.4 MG/DL (8.5-10.1); CHLORIDE 106 MMOL/L (99-107); CREATININE 1.14 MG/DL (0.40-0.90); GLUCOSE 119 MG/DL (70-104); MAGNESIUM 1.9 MG/DL (1.5-2.4); SODIUM 142 MMOL/L (135-145); TOTAL CARBON DIOXIDE 27.1 MMOL/L (24-32); eGFR 47 ML/MIN
[2017-10-29 06:00] VITALS: BP 137/88
[2017-10-29 06:12] LABS: POTASSIUM 4.7 MMOL/L (3.5-5.1)
[2017-10-29 07:06] LABS: EOSINOPHILS % (MANUAL) 1 % (0-6); LYMPHOCYTES % (MANUAL) 11 % (21-51); METAMYLEOCYTES% (MANUAL) 2 % (0-0); MONOCYTES % (MANUAL) 5 % (2-12); NEUTROPHILS % (MANUAL) 81 % (42-75); PLATELET ESTIMATE NORMAL; TOTAL CELLS COUNTED 100
[2017-10-29 07:07] LABS: POLYCHROMASIA 1+
[2017-10-29] MEDS: Protein Shake (high protein) 240ml (8oz) cup PO SCH ×3 (08:00→18:00)
[2017-10-29] MEDS: potassium Cl 20 mEq SR tablet PO SCH ×2 (08:00→20:10)
[2017-10-29] MEDS: K and/or MAG REPLACEMENT MC SCH (08:00)
[2017-10-29] MEDS: magnesium Cl slow-release 64mg tablet PO SCH ×2 (08:14→20:10)
[2017-10-29] MEDS: triamterene/HCTZ 37.5/25mg tablet PO SCH (08:14)
[2017-10-29] MEDS: amiodarone 200mg tablet PO SCH ×3 (08:14→20:14)
[2017-10-29] MEDS: docusate sod 100mg capsule PO SCH ×2 (08:14→20:09)
[2017-10-29] MEDS: atorvastatin 10mg tablet PO SCH (08:15)
[2017-10-29] MEDS: pantoprazole 40mg Tablet.DR PO SCH (08:15)
[2017-10-29] MEDS: aspirin 81mg tablet.DR PO SCH (08:15)
[2017-10-29] MEDS: metoprolol tartrate 50mg tablet PO SCH ×2 (08:17→20:10)
[2017-10-29] MEDS: vitamin D (cholecalciferol) 1,000 unit tablet PO SCH (08:18)
[2017-10-29 11:00] VITALS: BP 111/67
[2017-10-29] MEDS: ondansetron/PF 4mg/2ml inj IV PRN (14:54)
[2017-10-29 15:00] VITALS: BP 120/67
[2017-10-29 19:00] VITALS: BP 111/66
[2017-10-29] MEDS: lisinopril 20mg tablet PO SCH (20:09)
[2017-10-29] MEDS: doxazosin mesylate 2mg tablet PO SCH (20:09)
[2017-10-29] MEDS: apixaban 5mg tablet PO SCH (20:10)
[2017-10-29] MEDS: insulin glargine (Lantus) pen - multi-dose SQ SCH (20:38)
[2017-10-29 23:00] VITALS: BP 117/61
[2017-10-30 03:00] VITALS: BP 113/49
[2017-10-30 04:42] LABS: BASOPHILS % (AUTO) 0.3 % (0-1); EOSINOPHILS # (AUTO) 0.2 X10'3 (0-0.9); HEMATOCRIT 30.5 % (35.0-45.0); HEMOGLOBIN 10.3 g/dl (12.0-16.0); LYMPHOCYTES # (AUTO) 1.2 X10'3 (1.1-4.8); MEAN CORPUSCULAR HEMOGLOBIN 32.1 PG (27.0-31.0); MEAN CORPUSCULAR HGB CONC 33.8 % (33.0-36.5); MEAN CORPUSCULAR VOLUME 94.8 FL (78-98); MEAN PLATELET VOLUME 9.8 FL (7.4-10.4); MONOCYTES # (AUTO) 1.1 X10'3 (0-0.9); MONOCYTES % (AUTO) 7.5 % (2-12); NEUTROPHILS # (AUTO) 12.6 X10'3 (1.8-7.7); NEUTROPHILS % (AUTO) 83.2 % (42-75); PLATELET COUNT 233 X10'3 (140-440); RED BLOOD COUNT 3.22 X10'6 (4.20-5.60); RED CELL DISTRIBUTION WIDTH 14.4 % (11.5-14.5); WHITE BLOOD COUNT 15.2 X10'3 (4.5-11.0)
[2017-10-30 04:48] LABS: ALBUMIN 2.8 G/DL (3.4-5.0); ANION GAP 5 (8-16); BLOOD UREA NITROGEN 43 MG/DL (7-18); BUN/CREATININE RATIO 31.9 (6.6-38.0); CHLORIDE 107 MMOL/L (99-107); CREATININE 1.35 MG/DL (0.40-0.90); GLUCOSE 123 MG/DL (70-104); MAGNESIUM 2.1 MG/DL (1.5-2.4); POTASSIUM 5.5 MMOL/L (3.5-5.1); SODIUM 139 MMOL/L (135-145); TOTAL CARBON DIOXIDE 27.3 MMOL/L (24-32); eGFR 38 ML/MIN
[2017-10-30 06:00] VITALS: BP 108/69
[2017-10-30] MEDS: docusate sod 100mg capsule PO SCH (07:36)
[2017-10-30] MEDS: vitamin D (cholecalciferol) 1,000 unit tablet PO SCH (07:37)
[2017-10-30] MEDS: metoprolol tartrate 50mg tablet PO SCH (07:37)
[2017-10-30] MEDS: aspirin 81mg tablet.DR PO SCH (07:37)
[2017-10-30] MEDS: atorvastatin 10mg tablet PO SCH (07:37)
[2017-10-30] MEDS: amiodarone 200mg tablet PO SCH (07:37)
[2017-10-30] MEDS: pantoprazole 40mg Tablet.DR PO SCH (07:37)
[2017-10-30] MEDS: apixaban 5mg tablet PO SCH (07:37)
[2017-10-30] MEDS: potassium Cl 20 mEq SR tablet PO SCH (07:38)
[2017-10-30] MEDS: magnesium Cl slow-release 64mg tablet PO SCH (07:38)
[2017-10-30] MEDS: K and/or MAG REPLACEMENT MC SCH (07:41)
[2017-10-30] MEDS: Protein Shake (high protein) 240ml (8oz) cup PO SCH (07:41)
== END 2017-10-30 11:30 | DRG 236 ==
LOC: PAS IN 05:22 → EDSTATUS 07:30 → CICU 2S 10:54 → PCU 3S 10-28 11:45
PROVIDERS: ADMIT Thoracic Surgery (Cardiothoracic Vascular Surgery); ATTEND Thoracic Surgery (Cardiothoracic Vascular Surgery)
PROC: 021109W Bypass Coronary Artery, Two Arteries from Aorta with Autologous Venous Tissue, Open Approach (ICD-10-PCS; 2017-10-22)
PROC: 06BP4ZZ Excision of Right Saphenous Vein, Percutaneous Endoscopic Approach (ICD-10-PCS; 2017-10-22)
PROC: B24BZZ4 Ultrasonography of Heart with Aorta, Transesophageal (ICD-10-PCS; 2017-10-22)
PROC: 5A1221Z Performance of Cardiac Output, Continuous (ICD-10-PCS; 2017-10-22)
PROC: 30233N1 Transfusion of Nonautologous Red Blood Cells into Peripheral Vein, Percutaneous Approach (ICD-10-PCS; 2017-10-22)
PROC: 30233R1 Transfusion of Nonautologous Platelets into Peripheral Vein, Percutaneous Approach (ICD-10-PCS; 2017-10-22)
PROC: 30233M1 Transfusion of Nonautologous Plasma Cryoprecipitate into Peripheral Vein, Percutaneous Approach (ICD-10-PCS; 2017-10-22)
PROC: 02HP32Z Insertion of Monitoring Device into Pulmonary Trunk, Percutaneous Approach (ICD-10-PCS; 2017-10-22)
PROC: 4A133B3 Monitoring of Arterial Pressure, Pulmonary, Percutaneous Approach (ICD-10-PCS; 2017-10-22)
PROC: 4A1239Z Monitoring of Cardiac Output, Percutaneous Approach (ICD-10-PCS; 2017-10-22)
PROC: 02HV33Z Insertion of Infusion Device into Superior Vena Cava, Percutaneous Approach (ICD-10-PCS; 2017-10-22)
PROC: 02100Z9 Bypass Coronary Artery, One Artery from Left Internal Mammary, Open Approach (ICD-10-PCS; principal; 2017-10-22 07:00)
PROC: 5A09357 Assistance with Respiratory Ventilation, Less than 24 Consecutive Hours, Continuous Positive Airway Pressure (ICD-10-PCS; 2017-10-23)
PROC: 5A09357 Assistance with Respiratory Ventilation, Less than 24 Consecutive Hours, Continuous Positive Airway Pressure (ICD-10-PCS; 2017-10-24)
DX: I25.10 Atherosclerotic heart disease of native coronary artery without angina pectoris (principal); I48.91 Unspecified atrial fibrillation; E66.9 Obesity, unspecified; M19.90 Unspecified osteoarthritis, unspecified site; M51.36 Other intervertebral disc degeneration, lumbar region; D25.9 Leiomyoma of uterus, unspecified; I10 Essential (primary) hypertension; I70.0 Atherosclerosis of aorta; R94.39 Abnormal result of other cardiovascular function study; Z68.38 Body mass index [BMI] 38.0-38.9, adult
CPT/HCPCS: 0232T; 93312; 93325; 36415; 36600; 71045; 71046; 80048; 80053; 81001; 82330; 82435; 82800; 82803; 82947; 82948; 83036; 83735; 84100; 84132; 84295; 85018; 85025; 85027; 85347; 85384; 85610; 85730; 86885; 86900; 86901; 86920; 87070; 93005; 93880; 93971; 94002; 94010; 94760; 97110; 97116; 97161; 97530; A6212; A6213; A6255; A6257; A6258; A6402; A6449; A7000; A7048; C1751; J0282; J0690; J1265; J1644; J1815; J1940; J2001; J2060; J2150; J2270; J2370; J2405; J2440; J2704; J2720; J3370; J3480; J3490; J7030; J7060; J7120; P9012; P9016; P9035; P9045; P9047

== ENCOUNTER 2017-11-06 07:51 | Day surgery (SDC) | payer MEDICARE, BC ==
[2017-11-06] VITALS (8 sets, daily range): BP systolic 116–176; BP diastolic 66–126
[~2017-11-06] VITALS: Ht 149.9 cm; Wt 84.0 kg
[~2017-11-06 07:51] MED LIST changes: -ringers solution, lacted 1,000 ML IV SCH
[2017-11-06] MEDS ORDERED: HYDROcodone/acetaminophen 10/325mg tab PO PRN (08:30)
[2017-11-06] MEDS ORDERED: FURO40TA4 PO (08:43)
[2017-11-06] MEDS ORDERED: HYDR-565 PO (08:43)
[2017-11-06] MEDS ORDERED: IPRA3AMP9 IH (08:43)
[2017-11-06] MEDS ORDERED: ATOR10TA87 PO (08:43)
[2017-11-06] MEDS ORDERED: OMEP40CA37 PO (08:43)
[2017-11-06] MEDS ORDERED: PRE5T PO (08:43)
[2017-11-06] MEDS ORDERED: AMIO200T57 PO (08:43)
[2017-11-06] MEDS ORDERED: MULT-227 PO (08:43)
[2017-11-06] MEDS ORDERED: DOCU-28 PO (08:43)
[2017-11-06] MEDS ORDERED: POTA10TA19 PO (08:43)
[2017-11-06] MEDS ORDERED: METO100T14 PO (08:43)
[2017-11-06] MEDS ORDERED: RIVA20TA PO (08:43)
[2017-11-06] MEDS ORDERED: MELA3TAB PO (08:43)
[2017-11-06] MEDS ORDERED: LIDOcaine 1% 30ml preserv. free vial SQ ONE (08:45)
== END 2017-11-06 10:40 ==
LOC: SSTAY O 07:51
PROVIDERS: ATTEND Radiology Diagnostic Radiology
DX: J90 Pleural effusion, not elsewhere classified (principal); I25.10 Atherosclerotic heart disease of native coronary artery without angina pectoris; E78.5 Hyperlipidemia, unspecified; I10 Essential (primary) hypertension; J44.9 Chronic obstructive pulmonary disease, unspecified; I48.91 Unspecified atrial fibrillation; K21.9 Gastro-esophageal reflux disease without esophagitis; G47.33 Obstructive sleep apnea (adult) (pediatric); M19.90 Unspecified osteoarthritis, unspecified site; Z79.82 Long term (current) use of aspirin; Z95.1 Presence of aortocoronary bypass graft; Z98.890 Other specified postprocedural states; Z79.899 Other long term (current) drug therapy; Z72.89 Other problems related to lifestyle
CPT/HCPCS: 32555; 71045; J3490

== ENCOUNTER 2017-12-08 08:26 | Day surgery (SDC) | payer MEDICARE, BC ==
[~2017-12-08] VITALS: Ht 149.9 cm; Wt 81.6 kg
[~2017-12-08 08:26] MED LIST changes: +ACET-2119 PO; +AMIO200T57 PO; +ATOR10TA87 PO; +DOCU-28 PO; +FURO40TA4 PO; +HYDR-565 PO; +LIDOcaine 1% 30ml preserv. free vial SQ STA; +MELA3TAB PO; +METO100T14 PO; +MULT-227 PO; -NITR0.4T51 SL; +POTA10TA19 PO; +PRE5T PO; +RIVA20TA PO; -TRIA1CAP6 PO; -VERA240T PO
[2017-12-08 08:43] VITALS: BP 155/77
[2017-12-08 08:49] VITALS: BP 155/77
[2017-12-08 09:00] VITALS: BP 167/85
[2017-12-08 09:06] VITALS: BP 181/95
[2017-12-08 09:07] VITALS: BP 138/71
[2017-12-08 09:16] VITALS: BP 139/72
[2017-12-08 10:16] LABS: BFAPPEAR BLOODY
[2017-12-08 10:17] LABS: BF RBC COUNT 452000 /CU MM; BF WBC COUNT 900 /CU MM (0-1000); BFCOLOR RED; BFVOLUME 53 ML; LYMPHOCYTES,BODY FLUID 9 %; MONOCYTES,BODY FLUID 3 %; NEUTROPHILS,BODY FLUID 80 %
[2017-12-08 10:18] LABS: BF MESOTHELIAL CELLS FEW; EOSINOPHILS,BODY FLUID 8 %
== END 2017-12-08 09:31 | disposition home or self-care (01) ==
LOC: SSTAY O 08:26
PROVIDERS: ATTEND Radiology Diagnostic Radiology
DX: J90 Pleural effusion, not elsewhere classified (principal); I11.0 Hypertensive heart disease with heart failure; I50.9 Heart failure, unspecified; I25.10 Atherosclerotic heart disease of native coronary artery without angina pectoris; E78.5 Hyperlipidemia, unspecified; I42.8 Other cardiomyopathies; G47.33 Obstructive sleep apnea (adult) (pediatric); M19.90 Unspecified osteoarthritis, unspecified site; J44.9 Chronic obstructive pulmonary disease, unspecified; Z95.1 Presence of aortocoronary bypass graft; Z72.89 Other problems related to lifestyle; Z79.82 Long term (current) use of aspirin; Z79.891 Long term (current) use of opiate analgesic; Z79.899 Other long term (current) drug therapy; Z98.890 Other specified postprocedural states
CPT/HCPCS: 32555; 71045; 89051; J3490; 88108; 88305

== ENCOUNTER 2024-12-15 09:23 | Outpatient (CLI) | payer MEDICARE, BC ==
[~2024-12-15 09:23] MED LIST changes: +AMI200T PO; -AMIO200T57 PO; +HYDR-4353 PO; -HYDR-565 PO; -LIDOcaine 1% 30ml preserv. free vial SQ STA; -LISI-600 PO; +LISI20TA28 PO; -MELA3TAB PO; +MELA3TAB39 PO; +POTA-192 PO; -POTA10TA19 PO
--- NOTE | 2024-12-15 11:45 | RADIOLOGY REPORT ---
INDICATION: HEPATOMEGALY TECHNIQUE: Multiple real-time sonographic images of the abdomen were obtained. COMPARISON: None FINDINGS: The liver is homogenous in echogenicity. The liver measures 18cm. No intrahepatic biliary ductal dilatation is noted. The gallbladder wall measures 0.5 cm and is thickened. Gallbladder sludge. The common duct measures 0.4 cm and is unremarkable. No pericholecystic fluid is noted. The right kidney measures 10cm. No hydronephrosis. The left kidney measures 10cm. No hydronephrosis . The spleen measures 10 cm, within normal limits. The echogenicity is within normal limits. The pancreas is not well visualized due to obscuration from bowel gas. The visualized portions of the IVC and aorta are grossly unremarkable. IMPRESSION: Gallbladder sludge with thickening of the gallbladder wall
== END 2024-12-15 23:59 | disposition home or self-care (01) ==
LOC: RAD 09:23
PROVIDERS: ATTEND Student in an Organized Health Care Education/Training Program
DX: R16.0 Hepatomegaly, not elsewhere classified (principal)
CPT/HCPCS: 76700